=== PATIENT | male | born 1945 | race Caucasian/White ===

== ENCOUNTER 2018-07-29 16:50 | Inpatient (IN) | payer MEDICARE ==
[~2018-07-29] VITALS: Ht 182.9 cm; Wt 104.3 kg
[2018-07-29 16:30] VITALS: BP 135/51
--- NOTE | 2018-07-29 16:30 | NUR ---
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
[2018-07-29] MEDS ORDERED: OXYC5CAP18 PO (18:13)
[2018-07-29] MEDS ORDERED: LOSA100T31 PO (18:13)
[2018-07-29] MEDS ORDERED: AMLO10TA7 PO (18:13)
[2018-07-29] MEDS ORDERED: BISA-79 PO (18:13)
[2018-07-29] MEDS ORDERED: TAMS-3 PO (18:13)
[2018-07-29] MEDS ORDERED: TRAM50TA2 PO (18:13)
[2018-07-29] MEDS ORDERED: METO-356 PO (18:13)
[2018-07-29] MEDS ORDERED: ATOR20TA PO (18:13)
[2018-07-29] MEDS ORDERED: METO-357 PO (18:13)
[2018-07-29] MEDS ORDERED: POLY17PO4 PO (18:13)
[2018-07-29] MEDS ORDERED: SENN-18 PO (18:13)
[2018-07-29] MEDS ORDERED: BISA10SU61 RC (18:13)
[2018-07-29] MEDS ORDERED: DOCU100C36 PO (18:13)
[2018-07-29] MEDS ORDERED: ASPI-612 PO (18:13)
[2018-07-29] MEDS ORDERED: FINA5TAB3 PO (18:13)
[2018-07-29] MEDS ORDERED: BISACODYL 10 MG SUPP.RECT RC PRN (18:30)
[2018-07-29] MEDS ORDERED: BISACODYL 5 MG TABLET.DR PO PRN (18:30)
[2018-07-29] MEDS ORDERED: MIRALAX 17 GM POWD.PACK PO PRN (18:30)
[2018-07-29] MEDS: ASPIRIN 325 MG TABLET PO SCH (18:55)
[2018-07-29] MEDS: DOCUSATE SODIUM 100 MG CAPSULE PO SCH (18:55)
[2018-07-29] MEDS: OXYCODONE HCL 5 MG TABLET PO PRN (18:55)
--- NOTE | 2018-07-29 19:25 | NUR ---
Patient alert and oriented x 4. Received in bed, resting comfortably. Daughters at bedside asking questions of nurse about physical therapy for tomorrows. Physical assessment performed. No C/O pain, SOB, or distress upon assessment. Side rails up bilaterally for safety. Call light and frequently used items within reach. Will continue to monitor
[2018-07-29 20:29] VITALS: BP 118/61
[2018-07-29] MEDS: ATORVASTATIN 20 MG TABLET PO SCH (20:46)
[2018-07-29] MEDS: TAMSULOSIN HCL 0.4 MG CAP.SR.24H PO SCH (20:46)
[2018-07-29] MEDS: MUPIROCIN 2% OINT 22 GM TUBE NS SCH (20:46)
[2018-07-30] MEDS: OXYCODONE HCL 5 MG TABLET PO PRN ×2 (01:31→09:12)
[2018-07-30 05:28] VITALS: BP 134/73
--- NOTE | 2018-07-30 06:50 | NUR ---
Patient slept on and off during shift superintendent. All due medications given-tolerated well. C/O pain this morning, but unable to give pain medication because it was too early. Will endorse to oncoming shift to administered this morning. SCD Pumps on for DVT prophylaxis. Assisted to the bathroom x1. Side rails up bilaterally for safety. Call light and frequently used items with reach. Will endorse to oncoming shift accordingly.
[2018-07-30 07:00] VITALS: BP 129/62
[2018-07-30] MEDS: SENNOSIDES 1 TABLET PO SCH ×2 (09:00→09:08)
[2018-07-30] MEDS ORDERED: METOPROLOL SUCCINATE XL 50 MG TAB.SR.24H PO SCH (09:00)
[2018-07-30] MEDS: DOCUSATE SODIUM 100 MG CAPSULE PO SCH ×3 (09:00→17:00)
[2018-07-30] MEDS: METOPROLOL SUCCINATE XL 25 MG TAB.SR.24H PO SCH (09:09)
[2018-07-30] MEDS: AMLODIPINE 10 MG TABLET PO SCH (09:09)
[2018-07-30] MEDS: LOSARTAN POTASSIUM 50 MG TABLET PO SCH (09:10)
[2018-07-30] MEDS: MUPIROCIN 2% OINT 22 GM TUBE NS SCH ×2 (09:12→20:30)
[2018-07-30] MEDS: ASPIRIN 325 MG TABLET PO SCH ×2 (09:13→17:44)
[2018-07-30] MEDS: FINASTERIDE 5 MG TABLET PO SCH (09:13)
--- NOTE | 2018-07-30 11:08 | NUR ---
INTERDISCIPLINARY TEAM CONFERENCE
[2018-07-30] MEDS: ACETAMINOPHEN 325 MG TABLET PO PRN (14:05)
[2018-07-30 16:17] VITALS: BP 105/55
--- NOTE | 2018-07-30 19:45 | NUR ---
Received patient in bed. AAO x 4. No acute distress or SOB noted. On room air. Complained of pain on his left knee, rated 6/10. Pertinent assessments done. Safety measures maintained. Bed in low position, brake and alarm on, side rails up x2 for safety. Call light and personal belongings within reach. Will continue to monitor.
[2018-07-30 20:09] VITALS: BP 142/64
[2018-07-30] MEDS: ATORVASTATIN 20 MG TABLET PO SCH (20:29)
[2018-07-30] MEDS: TAMSULOSIN HCL 0.4 MG CAP.SR.24H PO SCH (20:29)
[2018-07-30] MEDS: TRAMADOL HCL 50 MG TABLET PO PRN (20:30)
[2018-07-31] MEDS: ACETAMINOPHEN 325 MG TABLET PO PRN (01:53)
--- NOTE | 2018-07-31 04:31 | NUR ---
End of the shift note Patient was stable throughout the shift and had a good sleep last night. No signs of acute distress or SOB noted. Complained of pain in the left knee. Tramadol given and was effective. All due medication given as ordered and well tolerated. All needs attended promptly. Safety measures observed. Fall prevention maintained. Bed in low position, brake and alarm on, side rails up x2 for her safety. Will continue to monitor and will endorse to oncoming nurse accordingly.
[2018-07-31 04:57] VITALS: BP 116/65
[2018-07-31 08:14] VITALS: BP 114/63
[2018-07-31] MEDS: ASPIRIN 325 MG TABLET PO SCH ×2 (08:40→17:53)
[2018-07-31] MEDS: MUPIROCIN 2% OINT 22 GM TUBE NS SCH ×2 (08:40→20:52)
[2018-07-31] MEDS: LOSARTAN POTASSIUM 50 MG TABLET PO SCH (08:41)
[2018-07-31] MEDS: FINASTERIDE 5 MG TABLET PO SCH (08:42)
[2018-07-31] MEDS: OXYCODONE HCL 5 MG TABLET PO PRN ×2 (08:50→20:56)
[2018-07-31] MEDS: DOCUSATE SODIUM 100 MG CAPSULE PO SCH ×2 (08:53→17:00)
[2018-07-31] MEDS: SENNOSIDES 1 TABLET PO SCH (08:53)
--- NOTE | 2018-07-31 08:55 | NUR ---
Patient awake, alert, not in any form of acute distress. Patient complained of pain on the left knee given PRN pain medication as ordered, and administered due medications and tolerated well. Assisted with his needs. Call light placed within reach.
[2018-07-31] MEDS: METOPROLOL SUCCINATE XL 25 MG TAB.SR.24H PO SCH (09:45)
[2018-07-31] MEDS: AMLODIPINE 10 MG TABLET PO SCH (09:45)
[2018-07-31 10:45] VITALS: BP 114/63
[2018-07-31 11:17] VITALS: BP 114/63
[2018-07-31] MEDS: TRAMADOL HCL 50 MG TABLET PO PRN (16:05)
[2018-07-31 17:17] VITALS: BP 139/64
[2018-07-31] MEDS: ATORVASTATIN 20 MG TABLET PO SCH (20:54)
[2018-07-31] MEDS: TAMSULOSIN HCL 0.4 MG CAP.SR.24H PO SCH (20:54)
[2018-07-31 21:03] VITALS: BP 148/73
--- NOTE | 2018-07-31 21:42 | NUR ---
resting in bed upon initial rounds. aaox4 admitted for S/P left TKA. Left knee dressing in placed with dian intact. pain meds given as needed. relief noted. fall precautions maintained. siderails up for safety. voiding well. 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 will monitor patient. needs attended. VSS.
[2018-08-01 05:12] VITALS: BP 128/68
--- NOTE | 2018-08-01 06:52 | NUR ---
quiet night. aaox4 no acute distress noted. contact isolation maintained. VSS needs attended. voiding well. denies any pain nor any discomfort. will monitor patient.
[2018-08-01] MEDS: AMLODIPINE 10 MG TABLET PO SCH (09:03)
[2018-08-01] MEDS: LOSARTAN POTASSIUM 50 MG TABLET PO SCH (09:03)
[2018-08-01] MEDS: FINASTERIDE 5 MG TABLET PO SCH (09:03)
[2018-08-01] MEDS: METOPROLOL SUCCINATE XL 25 MG TAB.SR.24H PO SCH (09:03)
[2018-08-01] MEDS: SENNOSIDES 1 TABLET PO SCH (09:03)
[2018-08-01] MEDS: DOCUSATE SODIUM 100 MG CAPSULE PO SCH ×2 (09:03→16:11)
[2018-08-01] MEDS: MUPIROCIN 2% OINT 22 GM TUBE NS SCH ×2 (09:04→20:06)
[2018-08-01] MEDS: ASPIRIN 325 MG TABLET PO SCH ×2 (09:04→16:11)
[2018-08-01] MEDS: OXYCODONE HCL 5 MG TABLET PO PRN ×2 (09:11→20:07)
--- NOTE | 2018-08-01 09:57 | NUR ---
Received pt. on bed, comfortable in no distress. A/Ox4 verbally responsive and able to make his needs known. Denies CP or SOB, on RA tolerating well with 95% SpO2. All due medications administered as ordered and tolerated well. C/O LT. knee pain (10/27), PRN OXYir given as ordered and effective. Lt. knee incision covered with C/D/I dressing. On contact isolation precaution for MRSA of nares. All pt. needs attended and met promptly. Safety measures in place. Call light and all frequently used items within pt. reach.
[2018-08-01 16:07] VITALS: BP 135/72
--- NOTE | 2018-08-01 18:05 | NUR ---
End of shift note: No significant change during this shift. No sign of acute distress or SOB was noted. Kept pt clean and dry throughout this shift. Using CPM @ 55 degrees. Safety measures maintained. All needs attended and met promptly. Bed in low position, brake on, side rails up x2 as an enabler. Call light and all frequently used items within pt. reach. Will endorse to next shift accordingly
[2018-08-01 19:35] VITALS: BP 116/68
[2018-08-01] MEDS: TAMSULOSIN HCL 0.4 MG CAP.SR.24H PO SCH (20:06)
[2018-08-01] MEDS: ATORVASTATIN 20 MG TABLET PO SCH (20:06)
--- NOTE | 2018-08-01 20:45 | NUR ---
Received pt resting in bed. AAO x4. No acute distress noted. C/o 09/27 left knee pain. PRN pain med given. Other due meds also given as ordered. VSS. Contact isolation precaution for MRSA of the nares observed. Safety measures maintained. Call light and personal belongings within reach. Will continue to monitor.
[2018-08-02 05:10] VITALS: BP 131/63
[2018-08-02] MEDS: ASPIRIN 325 MG TABLET PO SCH ×2 (08:46→16:24)
[2018-08-02] MEDS: FINASTERIDE 5 MG TABLET PO SCH (08:46)
[2018-08-02] MEDS: LOSARTAN POTASSIUM 50 MG TABLET PO SCH (08:46)
[2018-08-02] MEDS: METOPROLOL SUCCINATE XL 25 MG TAB.SR.24H PO SCH (08:47)
[2018-08-02] MEDS: AMLODIPINE 10 MG TABLET PO SCH (08:47)
[2018-08-02] MEDS: MUPIROCIN 2% OINT 22 GM TUBE NS SCH (08:48)
[2018-08-02] MEDS: OXYCODONE HCL 5 MG TABLET PO PRN ×2 (08:48→20:04)
[2018-08-02] MEDS: DOCUSATE SODIUM 100 MG CAPSULE PO SCH ×2 (08:53→16:24)
[2018-08-02] MEDS: SENNOSIDES 1 TABLET PO SCH (08:53)
[2018-08-02 09:00] VITALS: BP 140/63
--- NOTE | 2018-08-02 09:00 | NUR ---
Received patient awake, alert x4. Not in any form of distress. Surgical dressing dry and intact, no discharges noted. With pain over left knee. PRN OyIr given prior to therapy.
--- NOTE | 2018-08-02 10:00 | NUR ---
Up with physical therapy, tolerating well. Was able to ambulate, CMP at 70 degrees.
[2018-08-02] MEDS: TRAMADOL HCL 50 MG TABLET PO PRN (13:05)
[2018-08-02 16:07] VITALS: BP 150/77
[2018-08-02 19:40] VITALS: BP 138/71
--- NOTE | 2018-08-02 19:45 | NUR ---
Received patient in bed. AAO x 4. Able to make needs known. No acute distress or SOB noted. On room air. Complained of pain on his left knee, rated 6/10. Pertinent assessments done. Safety measures maintained. Bed in low position, brake and alarm on, side rails up x2 for safety. Call light and personal belongings within reach. Will continue to monitor.
[2018-08-02] MEDS: TAMSULOSIN HCL 0.4 MG CAP.SR.24H PO SCH (20:03)
[2018-08-02] MEDS: ATORVASTATIN 20 MG TABLET PO SCH (20:03)
--- NOTE | 2018-08-03 05:45 | NUR ---
End of the shift note Patient was stable throughout the shift and had a good sleep last night. No signs of acute distress or SOB noted. Complained of pain in the left knee, rated 6/10. Oxycodone 15 mg given and was effective. All due medication given as ordered and well tolerated. All needs attended promptly. Safety measures observed. Fall prevention maintained. Bed in low position, brake and alarm on, side rails up x2 for her safety. Will continue to monitor and will endorse to oncoming nurse accordingly.
[2018-08-03 06:22] VITALS: BP 139/65
--- NOTE | 2018-08-03 08:02 | NUR ---
patient is watching TV, awake. no acute distress noted at this time
[2018-08-03 08:15] VITALS: BP 137/73
[2018-08-03] MEDS: LOSARTAN POTASSIUM 50 MG TABLET PO SCH (08:28)
[2018-08-03] MEDS: METOPROLOL SUCCINATE XL 25 MG TAB.SR.24H PO SCH (08:28)
[2018-08-03] MEDS: SENNOSIDES 1 TABLET PO SCH (08:28)
[2018-08-03] MEDS: ACETAMINOPHEN 325 MG TABLET PO PRN (08:29)
[2018-08-03] MEDS: AMLODIPINE 10 MG TABLET PO SCH (08:29)
[2018-08-03] MEDS: DOCUSATE SODIUM 100 MG CAPSULE PO SCH ×2 (08:29→17:28)
[2018-08-03] MEDS: ASPIRIN 325 MG TABLET PO SCH ×2 (08:30→17:29)
[2018-08-03] MEDS: FINASTERIDE 5 MG TABLET PO SCH (09:33)
--- NOTE | 2018-08-03 10:13 | NUR ---
followed up with [facility] AMUSEMENT MACHINE MECHANIC regarding isolation, per AMUSEMENT MACHINE MECHANIC repeat the MRSA swabs to both nares.
[2018-08-03 17:00] VITALS: BP 132/65
--- NOTE | 2018-08-03 18:56 | NUR ---
PATIENT IS ALERT, ORIENTED X4, NO SOB, RESP EVEN NONLABORED,SKIN WARM AND DRY TO TOUCH, NO ACUTE DISTRESS NOTED, PAIN IS WELL MANAGED WITH NONPHARMACOLOGICAL INTERVENTIONS AND WITH MEDS, TOLERATED MEDS AND PT,OT WELL, ATE GOOD MEALS, TOLERATED WELL, ASSISTED WITH ADLS, WILL ENDORSE ACCORDINGLY TO NEXT SHIFT.
[2018-08-03] MEDS: ATORVASTATIN 20 MG TABLET PO SCH (20:15)
[2018-08-03] MEDS: TAMSULOSIN HCL 0.4 MG CAP.SR.24H PO SCH (20:15)
[2018-08-03] MEDS: OXYCODONE HCL 5 MG TABLET PO PRN (20:17)
[2018-08-03 20:25] VITALS: BP 142/63
--- NOTE | 2018-08-03 20:50 | NUR ---
aaox4 OOB with walker. patient s/p left total knee arthroplasty. Left knee dressing clean, dry and intact with dian in place. In good spirits. Medicated for pain as needed, oxycontin 15 mg given as ordered. Relief noted. Voiding freely. Will monitor patient. No acute distress noted. VSS. Compliant with meds and care. Fall precautions maintained. Siderails up for safety.
[2018-08-04 04:34] VITALS: BP 134/67
--- NOTE | 2018-08-04 06:06 | NUR ---
slept well most of the shift. aaox4 dressing change to left knee with dian intact. tolerated well. patient unhappy the way dressing changed. he said it should not overlap the dressing. explained to patient that it wasnt touching the dian. apologized to patient that dressing is okay. denies any pain nor any discomfort.
[2018-08-04] MEDS: AMLODIPINE 10 MG TABLET PO SCH (08:24)
[2018-08-04] MEDS: METOPROLOL SUCCINATE XL 25 MG TAB.SR.24H PO SCH (08:25)
[2018-08-04] MEDS: LOSARTAN POTASSIUM 50 MG TABLET PO SCH (08:25)
[2018-08-04] MEDS: OXYCODONE HCL 5 MG TABLET PO PRN ×2 (08:26→19:52)
[2018-08-04] MEDS: DOCUSATE SODIUM 100 MG CAPSULE PO SCH ×2 (08:27→16:50)
[2018-08-04] MEDS: FINASTERIDE 5 MG TABLET PO SCH (08:27)
[2018-08-04] MEDS: ASPIRIN 325 MG TABLET PO SCH ×2 (08:27→16:49)
[2018-08-04] MEDS: SENNOSIDES 1 TABLET PO SCH (08:28)
[2018-08-04 09:00] VITALS: BP 147/67
--- NOTE | 2018-08-04 09:00 | NUR ---
Received patient awake, alert x4. Not in any form of distress. Reinforced surgical dressing over left knee. Surgical wound clean and dry, no discharges noted, no S/S of infection. With pain over left knee. PRN pain medications given prior to therapy.
--- NOTE | 2018-08-04 09:30 | NUR ---
Refused Senna and Colace, said he does not need it. Discussed risks and benefits but patient still refused.
--- NOTE | 2018-08-04 13:00 | NUR ---
Up with occupational therapy, tolerating well. With tolerable pain levels. Was able to ambulate with front wheel walker
[2018-08-04] MEDS: TRAMADOL HCL 50 MG TABLET PO PRN (15:01)
[2018-08-04 17:00] VITALS: BP 132/55
[2018-08-04 17:02] LABS: BASOPHILS # (AUTO) 0.1 K/uL (0.0-8.0); BASOPHILS % (AUTO) 1.1 % (0.0-2.0); EOSINOPHILS # (AUTO) 0.4 K/uL (0.0-0.7); EOSINOPHILS % (AUTO) 4.2 % (0.0-7.0); HEMATOCRIT 34.2 % (36.7-47.1); HEMOGLOBIN 11.5 g/dL (12.5-16.3); LYMPHOCYTES # (AUTO) 1.1 K/uL (20.0-40.0); LYMPHOCYTES % (AUTO) 10.9 % (20.5-51.5); MEAN CORPUSCULAR HEMOGLOBIN 29.7 uug (23.8-33.4); MEAN CORPUSCULAR HGB CONC 34 g/dL (32.5-36.3); MEAN CORPUSCULAR VOLUME 88.1 fL (73.0-96.2); MONOCYTES # (AUTO) 0.8 K/uL (2.0-10.0); MONOCYTES % (AUTO) 7.6 % (0.0-11.0); NEUTROPHILS # (AUTO) 7.6 K/uL (1.8-8.9); NEUTROPHILS % (AUTO) 76.2 % (38.5-71.5); PLATELET COUNT (AUTO) 373 K/uL (152-348); RED BLOOD CELL COUNT(AUTO) 3.88 MIL/uL (4.06-5.63); WHITE BLOOD COUNT (AUTO) 9.9 K/uL (3.6-10.2)
[2018-08-04 17:13] LABS: ALANINE AMINOTRANSFERASE 27 U/L (16-63); ALKALINE PHOSPHATASE 99 U/L (50-136); ASPARTATE AMINOTRANSFERASE 12 U/L (15-37); BILIRUBIN,TOTAL 0.8 mg/dL (0.2-1.0); CARBON DIOXIDE 28 mmol/L (21-32); CHLORIDE 103 mmol/L (98-107); CREATININE 0.9 mg/dL (0.6-1.3); GLUCOSE 178 mg/dL (74-106); MAGNESIUM 2.4 mg/dL (1.8-2.4); PHOSPHOROUS 3.8 mg/dL (2.5-4.9); POTASSIUM 4.7 mmol/L (3.5-5.1); TOTAL PROTEIN, SERUM 6.6 g/dL (6.4-8.2); UREA NITROGEN, BLOOD 15 mg/dL (7-18)
[2018-08-04 17:24] LABS: THYROID STIMULATING HORMONE 2.572 mIU/mL (0.358-3.740)
--- NOTE | 2018-08-04 18:35 | NUR ---
DISCONTINUED CONTACT ISOLATION, ORDER RECEIVED FROM DR ROSENBAUM. REPEATED MRSA SWAB RESULT IS "NO MRSA ISOLATED"ORDER NOTED.
--- NOTE | 2018-08-04 19:00 | NUR ---
Awake during initial rounds. Requesting pain medication later for left knee pain, Left knee dressing dry and intact. Safety measure and afll precaution maintained. Continue care as planned.
[2018-08-04 19:43] VITALS: BP 104/61
--- NOTE | 2018-08-04 19:55 | NUR ---
Medicated for complaint of left knee pain in scale 7/10. Will monitor.
[2018-08-04] MEDS: TAMSULOSIN HCL 0.4 MG CAP.SR.24H PO SCH (20:37)
[2018-08-04] MEDS: ATORVASTATIN 20 MG TABLET PO SCH (20:37)
[2018-08-05 06:28] VITALS: BP 137/63
--- NOTE | 2018-08-05 06:35 | NUR ---
Shift End Report: VS stable. No further complaint of pain presented. Very independent. Slept well. Looking forward for discharge today. All needs attended and met. No significant event reported all night.
[2018-08-05 07:28] LABS: BASOPHILS # (AUTO) 0.1 K/uL (0.0-8.0); BASOPHILS % (AUTO) 1.2 % (0.0-2.0); EOSINOPHILS # (AUTO) 0.4 K/uL (0.0-0.7); EOSINOPHILS % (AUTO) 4.1 % (0.0-7.0); HEMOGLOBIN 11.5 g/dL (12.5-16.3); LYMPHOCYTES # (AUTO) 1.1 K/uL (20.0-40.0); LYMPHOCYTES % (AUTO) 12.9 % (20.5-51.5); MEAN CORPUSCULAR HEMOGLOBIN 29.4 uug (23.8-33.4); MEAN CORPUSCULAR HGB CONC 34 g/dL (32.5-36.3); MEAN CORPUSCULAR VOLUME 86.8 fL (73.0-96.2); MONOCYTES # (AUTO) 0.7 K/uL (2.0-10.0); MONOCYTES % (AUTO) 7.7 % (0.0-11.0); NEUTROPHILS # (AUTO) 6.5 K/uL (1.8-8.9); NEUTROPHILS % (AUTO) 74.1 % (38.5-71.5); PLATELET COUNT (AUTO) 371 K/uL (152-348); RED BLOOD CELL COUNT(AUTO) 3.91 MIL/uL (4.06-5.63); WHITE BLOOD COUNT (AUTO) 8.8 K/uL (3.6-10.2)
[2018-08-05 08:10] LABS: ALANINE AMINOTRANSFERASE 26 U/L (16-63); ALKALINE PHOSPHATASE 99 U/L (50-136); ASPARTATE AMINOTRANSFERASE 11 U/L (15-37); BILIRUBIN,TOTAL 0.8 mg/dL (0.2-1.0); CARBON DIOXIDE 27 mmol/L (21-32); CHLORIDE 104 mmol/L (98-107); CHOLESTEROL 100 mg/dL (<200); CREATININE 0.8 mg/dL (0.6-1.3); GLUCOSE 141 mg/dL (74-106); HDL CHOLESTEROL 32 mg/dL (40-60); MAGNESIUM 2.4 mg/dL (1.8-2.4); PHOSPHOROUS 3.8 mg/dL (2.5-4.9); POTASSIUM 4.3 mmol/L (3.5-5.1); TOTAL PROTEIN, SERUM 6.9 g/dL (6.4-8.2); TRIGLYCERIDES 91 MG/DL (30-150); UREA NITROGEN, BLOOD 11 mg/dL (7-18)
[2018-08-05] MEDS: OXYCODONE HCL 5 MG TABLET PO PRN (08:39)
[2018-08-05] MEDS: LOSARTAN POTASSIUM 50 MG TABLET PO SCH (08:40)
[2018-08-05] MEDS: AMLODIPINE 10 MG TABLET PO SCH (08:41)
[2018-08-05] MEDS: ASPIRIN 325 MG TABLET PO SCH (08:41)
[2018-08-05] MEDS: FINASTERIDE 5 MG TABLET PO SCH (08:41)
[2018-08-05] MEDS: METOPROLOL SUCCINATE XL 25 MG TAB.SR.24H PO SCH (08:41)
--- NOTE | 2018-08-05 08:45 | NUR ---
Received patient, awake, alert x4 resting in bed. For possible discharge today. Not in any form of distress. Surgical wound on knee dry and intact, no discharges noted. With pain over left knee rated as 7/10. PRN OxyIR given.
[2018-08-05] MEDS: SENNOSIDES 1 TABLET PO SCH (08:58)
[2018-08-05] MEDS: DOCUSATE SODIUM 100 MG CAPSULE PO SCH (08:58)
[2018-08-05 09:00] VITALS: BP 144/69
--- NOTE | 2018-08-05 15:15 | NUR ---
Discharge to home ambulatory with walker accompanied by daughter via private transport. Discharge order obtained from Dr. Lama. Discharge prescriptions explained to patient and daughter. Discharge packet and education given to patient, explained importance of taking blood pressure before taking blood pressure medications. Routine discharge care done. Instructed to take medications as prescribed. Instructed to follow up with Dr Shashi Ramos on 08/09/18 at 1:45PM. Patient stable, no complaints of pain. Surgical wound dry, with intact dian. No S/S of infection. Not in any form of distress.
== END 2018-08-05 15:15 | disposition home or self-care (01) | DRG 560 ==
PROVIDERS: ADMIT Physical Medicine & Rehabilitation Pain Medicine; ATTEND Physical Medicine & Rehabilitation Pain Medicine
DX: Z47.1 Aftercare following joint replacement surgery (principal); D68.59 Other primary thrombophilia; Z96.652 Presence of left artificial knee joint; E66.9 Obesity, unspecified; E78.5 Hyperlipidemia, unspecified; H40.9 Unspecified glaucoma; I10 Essential (primary) hypertension; Z68.31 Body mass index [BMI] 31.0-31.9, adult; N40.0 Benign prostatic hyperplasia without lower urinary tract symptoms; D64.9 Anemia, unspecified; E11.9 Type 2 diabetes mellitus without complications
CPT/HCPCS: 36415; 83735; 84100; 84443; 85025; 92523; 92526; 92610; 97110; 97112; 97116; 97165; 97530; 97535